=== PATIENT | male | born 1955 | race Two or more races ===

== ENCOUNTER 2025-05-11 10:27 | Outpatient (CLI) | payer OTHER ==
[2025-05-11 11:23] LABS: Hematocrit 45.2 % (41.0-53.0); Hemoglobin 15.4 g/dL (13.5-17.5); Mean Corpuscular Hemoglobin 29.8 pg (28.0-32.0); Mean Corpuscular Volume 87.6 fL (80.0-100.0); Nucleated Red Blood Cells % 0.1 %
[2025-05-11 11:42] LABS: Urine Protein, UAD Negative (Negative)
[2025-05-11 11:46] LABS: Iron 84.0 ug/dL (65-175)
[2025-05-11 11:49] LABS: Alanine Aminotransferase 24 U/L (7-40); Albumin 4.3 g/dL (3.2-4.8); Alkaline Phosphatase 72 U/L (46-116); Anion Gap 9 (5-15); BUN/Creatinine Ratio 20.8 (10.0-20.0); Bilirubin, Total 0.7 mg/dL (0.2-1.0); Blood Urea Nitrogen 16 mg/dL (9-23); Calcium 9.0 mg/dL (8.7-10.4); Carbon Dioxide 26 mmol/L (20-31); Chloride 107 mmol/L (98-107); Glucose 97 mg/dL (74-106); Magnesium 2.4 mg/dL (1.6-2.6); Potassium 3.8 mmol/L (3.5-5.1); Prostate Specific Antigen 1.57 ng/mL (0.0-4.0); Sodium 142 mmol/L (136-145); Total Protein 7.1 g/dL (5.7-8.2); Uric Acid 6.7 mg/dL (3.7-9.2)
[2025-05-11 11:50] LABS: Total Iron Binding Capacity 337.0 ug/dL (250-425)
[2025-05-11 11:52] LABS: Free T3 3.64 pg/mL (2.3-4.2)
[2025-05-11 11:54] LABS: Free T4 (Free Thyroxine) 1.06 ng/dL (0.89-1.76)
[2025-05-11 13:00] LABS: Triglycerides 60 mg/dL (< 150)
[2025-05-11 13:02] LABS: Cholesterol 149 mg/dL (< 200); HDL Cholesterol 59 mg/dL (40-59)
== END 2025-05-11 17:00 | disposition home or self-care (01) ==
LOC: LAB 10:27
PROVIDERS: ATTEND Family Medicine
DX: E78.2 Mixed hyperlipidemia (principal); Z00.00 Encounter for general adult medical examination without abnormal findings
CPT/HCPCS: 36415; 80053; 80061; 81001; 82306; 82607; 83036; 83540; 83550; 83735; 84153; 84403; 84439; 84443; 84480; 84481; 84550; 85025; 87086